=== PATIENT | female | born 1935 | race Caucasian/White ===

== ENCOUNTER 2020-08-29 08:52 | Day surgery (SDC) | payer MEDICARE, BC ==
[~2020-08-29 08:52] MED LIST: Lactated Ringers 1,000 ML IV SCH
[2020-08-29] MEDS ORDERED: Citric Acid/Sodium Citrate Solution 30 ML Cup PO ONE (10:19)
[2020-08-29] MEDS ORDERED: Propofol 200 MG/20 ML SDV ONE (10:26)
[2020-08-29 12:23] VITALS: BP 137/64; PULSE 61
--- NOTE | 2020-08-29 14:03 | OR ---
SURGERY DATE: 08/29/2020. REFERRING PROVIDER: Alissa Fernández MD PRE-OPERATIVE DIAGNOSES: 1. History of Coates's esophagitis. 2. Gastroesophageal reflux disease and sore throat. 3. Intermittent mild dysphagia at upper esophagus level. POST-OPERATIVE DIAGNOSES: 1. Numerous gastric polyps noted in the fundus, body, and cardia of the stomach. These range in size from 0.5 cm to 2.5 cm. However, none of these stand out or look overly worrisome. We had previously taken out larger polyp or 2 back in 2016 and appearance of the stomach is mostly unchanged. 2. Normal appearing esophagus and gastroesophageal junction without any evidence for Coates's esophagus. 3. Normal-appearing antrum. Cold biopsy x2 bites taken to check for Helicobacter pylori and path. 4. Small Zenker's diverticulum noted at the proximal esophagus, which is probably contributing to her dysphagia. The patient states that neck flexion does help when swallowing. PROCEDURE: Esophagogastroduodenoscopy with cold biopsy x1 site using cold forceps (antrum for H pylori and path). SURGEON: Mathew Ybarra M.D. ANESTHESIA: Monitored anesthesia care. Zaira is an 85-year-old female who was brought to the endoscope suite after discussion of risks and benefits (including but not limited to reaction to medication, bleeding, infection, aspiration, perforation). Informed consent was obtained for monitored anesthesia care and esophagogastroduodenoscopy along with possible biopsy and/or dilatation. Pre-procedure exam including oral cavity was unremarkable. IV, oxygen, and monitors were placed. Patient was placed in the left lateral position and sedation was administered. A bite block was placed gently and scope lightly lubricated and passed through the bite block and over the tongue. Hypopharynx and vocal cords were visualized and unremarkable. Scope was passed through the cricopharynx and into the esophagus. The scope was then passed through the distal esophagus and the GE junction was visualized and photographed. The GE junction was unremarkable. There was no evidence for any Coates's esophagus, strictures, rings, inflammation. Vocal cords were visualized and unremarkable. The scope was advanced into the stomach and gastric valencia was suctioned. Pylorus was identified and intubated and then the scope was advanced to the third portion of the duodenum. The second and third portions of the duodenum were unremarkable. The duodenal bulb was visualized and unremarkable. The scope was brought back into the stomach. The pylorus and the antrum were unremarkable. Cold biopsy x2 bites taken for path and H pylori. The scope was then retroflexed to visualize the angularis, fundus, body, and cardia. These were remarkable for numerous benign-appearing gastric polyps. Polyps were too numerous in number to count. They did range in size from 0.5 cm up to several that are probably 2.5 cm in size. These appeared to be benign fundic type polyps. The stomach was desufflated of air and then the scope was slowly withdrawn, and the esophagus was closely visualized during withdrawal all the way into the posterior pharynx. At the proximal esophagus, there was noted to be what looked like a small Zenker's diverticulum present. No inflammation or food contents noted within it. This was fairly shallow in nature and likely would not require any further intervention at this time. The patient tolerated the procedure well and went to recovery in stable condition. The patient was monitored until at baseline status. Findings and discharge instructions were reviewed and the patient was discharged in good condition. COMPLICATIONS: None. TOTAL TIME: 10 minutes. ESTIMATED BLOOD LOSS: Less than 1 mL. RECOMMENDATIONS/FOLLOW-UP: We will have the patient continue on her Nexium 40 mg daily for control of her reflux symptoms. I do not think she requires any further monitoring for Coates's esophagus in the future being this seems to be resolved. The stomach polyps appear mostly unchanged from 2016 and are too numerous to count. I also do not think it is feasible to remove all the ones that are greater than 1 cm in size, especially in this 85-year-old female. I would probably only repeat an EGD if she is having any symptoms of upper GI bleeding or dyspepsia or worsening reflux symptoms. With regard to her small Zenker's diverticulum, this is partially contributing to her dysphagia with certain pills. It sounds like she can modify her swallowing with neck flexion and this seems to help. The Zenker's diverticulum was small and shallow in nature. I do not foresee it being a huge issue that would require intervention. I would like to kindly thank Dr. Fernández for this referral. We will await antral biopsies and send out letter with results to ensure that H pylori is not present and contributing to gastric polyp formation. DMB: 08/29/2020 12:10:28 MODL: 08/29/2020 13:25:08 /[id number]
== END 2020-08-29 12:55 | disposition home or self-care (01) ==
LOC: VM.SDS 08:52
PROVIDERS: ATTEND Family Medicine
DX: K31.7 Polyp of stomach and duodenum (principal); K22.5 Diverticulum of esophagus, acquired; Z01.812 Encounter for preprocedural laboratory examination; Z20.828 Contact with and (suspected) exposure to other viral communicable diseases; I10 Essential (primary) hypertension; E03.4 Atrophy of thyroid (acquired); K21.9 Gastro-esophageal reflux disease without esophagitis; E78.00 Pure hypercholesterolemia, unspecified; F41.9 Anxiety disorder, unspecified; K22.70 Barrett's esophagus without dysplasia; I44.7 Left bundle-branch block, unspecified; F51.01 Primary insomnia; R73.9 Hyperglycemia, unspecified; I34.0 Nonrheumatic mitral (valve) insufficiency; R49.0 Dysphonia; M13.88 Other specified arthritis, other site; K59.09 Other constipation; K58.2 Mixed irritable bowel syndrome; R26.81 Unsteadiness on feet; J30.9 Allergic rhinitis, unspecified; M81.0 Age-related osteoporosis without current pathological fracture; Z79.899 Other long term (current) drug therapy; Z88.1 Allergy status to other antibiotic agents; Z88.2 Allergy status to sulfonamides; Z88.8 Allergy status to other drugs, medicaments and biological substances
CPT/HCPCS: 00731; 88305; A9270-GY; J2704; J7120; U0002

== ENCOUNTER 2022-01-24 13:10 | Emergency (ER) | payer MEDICARE, BC ==
[2022-01-24] MEDS ORDERED: Ketorolac 30 MG/ML SDV ONE (13:50)
== END 2022-01-25 14:12 ==
LOC: VM.ED 13:10
DX: G89.29 Other chronic pain (principal); M54.50 Low back pain, unspecified
CPT/HCPCS: 99283; J1885; 96372

== ENCOUNTER 2022-06-25 22:54 | Inpatient (IN) | payer MEDICARE, BC ==
[2022-06-25] MEDS ORDERED: Sodium Chloride 0.9% 10 ML Syringe FLUSH PRN (23:08)
[2022-06-25 23:37] LABS: PTT,PARTIAL THROMBOPLSTIN TIME 23.1 SEC (20.5-30.9)
[2022-06-25 23:44] LABS: CHLORIDE,CL 100 mmol/L (98-107); SODIUM,NA 136 mmol/L (136-145)
[2022-06-25 23:54] LABS: ANION GAP 11.2 mmol/L (5-15); ESTIMATED GFR 49 mL/min (>=60)
[2022-06-26] MEDS ORDERED: Iopamidol 755 Mg/ML 100 ML Bottle IVPUSH ONE (00:04)
[2022-06-26] MEDS ORDERED: Clopidogrel 75 MG Tab PO ONE (01:50)
[2022-06-26] MEDS ORDERED: Aspirin 81 MG Tab.Chew PO ONE (01:50)
[2022-06-26] MEDS ORDERED: Ondansetron 4 MG Tab.DIS PO PRN (08:23)
[2022-06-26] MEDS ORDERED: Acetaminophen 325 MG Tab PO PRN (08:23)
[2022-06-26] MEDS ORDERED: Zolpidem 5 MG Tab PO PRN (08:27)
[2022-06-26] MEDS ORDERED: Acetaminophen 500 MG Tab PO PRN (08:27)
[2022-06-26] MEDS ORDERED: traMADol 50 MG Tab PO PRN (08:27)
[2022-06-26] MEDS ORDERED: Clobetasol 0.05% Crm 30 GM Tube TOP PRN (08:27)
[2022-06-26] MEDS ORDERED: Cyclobenzaprine 10 MG Tab PO PRN (08:27)
[2022-06-26] MEDS ORDERED: Metoclopramide 10 MG Tab PO PRN (08:27)
[2022-06-26] MEDS ORDERED: Ibuprofen 200 MG Tab PO PRN (09:35)
[2022-06-26] MEDS ORDERED: Ketotifen 0.025% Ophth Soln 5 ML Bottle EYEBOTH PRN (09:39)
[2022-06-26] MEDS: Enoxaparin 30 MG/0.3 ML Syringe SUBCUT SCH (09:57)
[2022-06-26] MEDS: Lactobacillus Rhamnosus GG (Probiotic) Cap PO SCH (09:57)
[2022-06-26] MEDS: Hydrochlorothiazide 12.5 MG Cap PO SCH (09:57)
[2022-06-26] MEDS: Famotidine 20 MG Tab PO SCH (09:58)
[2022-06-26] MEDS: Atenolol 50 MG Tab PO SCH (09:58)
[2022-06-26] MEDS: Lisinopril 20 MG Tab PO SCH (09:58)
[2022-06-26] MEDS: Levothyroxine 100 MCG Tab PO SCH (09:58)
[2022-06-26] MEDS: Gabapentin 400 MG Cap PO SCH (09:58)
[2022-06-26] MEDS: Calcium Carbonate/Vitamin D3 1250 MG-5 MCG Tab PO SCH ×2 (09:59→18:21)
[2022-06-26] MEDS: Lidocaine 4% 1 each Patch TOP SCH (10:03)
[2022-06-26] MEDS: LOTEPREDNOL EYEBOTH SCH (12:29)
[2022-06-26] MEDS ORDERED: Potassium Chloride 10 MEQ Tab.ER PO ONE (13:00)
[2022-06-26] MEDS: atorvaSTATin 40 MG Tab PO SCH (14:05)
[2022-06-26] MEDS: Aspirin 325 MG Tab.EC PO SCH (14:06)
[2022-06-26] MEDS: Cholecalciferol (Vitamin D3) 25 MCG Tab PO SCH (14:06)
[2022-06-26] MEDS: Fenofibrate,Micronized 134 MG Cap PO SCH (14:06)
[2022-06-26] MEDS: Sodium Chloride/Potassium Chloride Tab PO SCH ×2 (14:06→20:44)
[2022-06-26] MEDS: Beta-Carotene (Vitamin A) w/Vitamin C & E plus Minerals Tab PO SCH ×2 (15:32→20:44)
[2022-06-26] MEDS: Docusate Sodium 100 MG Cap PO PRN (20:48)
[2022-06-26] MEDS ORDERED: Clopidogrel 75 MG Tab PO SCH (21:00)
[2022-06-27] MEDS: Levothyroxine 100 MCG Tab PO SCH (06:04)
[2022-06-27 08:15] VITALS: BP 165/68; PULSE 70
[2022-06-27] MEDS: Fenofibrate,Micronized 134 MG Cap PO SCH (08:20)
[2022-06-27] MEDS: Lactobacillus Rhamnosus GG (Probiotic) Cap PO SCH (08:20)
[2022-06-27] MEDS: Hydrochlorothiazide 12.5 MG Cap PO SCH (08:21)
[2022-06-27] MEDS: Sodium Chloride/Potassium Chloride Tab PO SCH (08:21)
[2022-06-27] MEDS: atorvaSTATin 40 MG Tab PO SCH (08:22)
[2022-06-27] MEDS: Beta-Carotene (Vitamin A) w/Vitamin C & E plus Minerals Tab PO SCH (08:22)
[2022-06-27] MEDS: Famotidine 20 MG Tab PO SCH (08:22)
[2022-06-27] MEDS: Atenolol 50 MG Tab PO SCH (08:22)
[2022-06-27] MEDS: Aspirin 325 MG Tab.EC PO SCH (08:23)
[2022-06-27] MEDS: Calcium Carbonate/Vitamin D3 1250 MG-5 MCG Tab PO SCH (08:23)
[2022-06-27] MEDS: Cholecalciferol (Vitamin D3) 25 MCG Tab PO SCH (08:23)
[2022-06-27] MEDS: Enoxaparin 30 MG/0.3 ML Syringe SUBCUT SCH (08:23)
[2022-06-27] MEDS: Gabapentin 400 MG Cap PO SCH (08:23)
[2022-06-27] MEDS: Lisinopril 20 MG Tab PO SCH (08:23)
[2022-06-27] MEDS: Lidocaine 4% 1 each Patch TOP SCH (08:24)
[2022-06-27] MEDS: Docusate Sodium 100 MG Cap PO PRN (08:28)
[2022-06-27] MEDS: LOTEPREDNOL EYEBOTH SCH (11:02)
== END 2022-06-27 10:30 | disposition home or self-care (01) | DRG 69 ==
LOC: VM.ED 22:54 → VM.MS 06-26 02:19 → UNDOADMIN 06-26 03:15 → VM.MS 06-26 03:15 → UNDODISIN 06-27 10:30
PROVIDERS: ADMIT Nurse Practitioner Family; ATTEND Nurse Practitioner Family
DX: G45.9 Transient cerebral ischemic attack, unspecified (principal); W19.XXXA Unspecified fall, initial encounter; E78.00 Pure hypercholesterolemia, unspecified; E87.1 Hypo-osmolality and hyponatremia; I10 Essential (primary) hypertension; I44.7 Left bundle-branch block, unspecified; M19.90 Unspecified osteoarthritis, unspecified site; M81.0 Age-related osteoporosis without current pathological fracture; E03.9 Hypothyroidism, unspecified; F41.9 Anxiety disorder, unspecified; Z88.1 Allergy status to other antibiotic agents; D64.9 Anemia, unspecified; E78.5 Hyperlipidemia, unspecified; Z79.82 Long term (current) use of aspirin; R29.700 NIHSS score 0; Z66 Do not resuscitate; G89.29 Other chronic pain; G47.00 Insomnia, unspecified; Z96.611 Presence of right artificial shoulder joint; R01.1 Cardiac murmur, unspecified; K21.9 Gastro-esophageal reflux disease without esophagitis; K59.09 Other constipation; Z86.79 Personal history of other diseases of the circulatory system; Z86.010 Personal history of colon polyps; Z98.42 Cataract extraction status, left eye; Z98.41 Cataract extraction status, right eye; Z79.890 Hormone replacement therapy; Z98.890 Other specified postprocedural states; Z90.89 Acquired absence of other organs; Z90.710 Acquired absence of both cervix and uterus; Z79.899 Other long term (current) drug therapy; Z79.1 Long term (current) use of non-steroidal anti-inflammatories (NSAID); Z79.52 Long term (current) use of systemic steroids; Z88.8 Allergy status to other drugs, medicaments and biological substances; Z88.3 Allergy status to other anti-infective agents; Z88.5 Allergy status to narcotic agent; Z88.2 Allergy status to sulfonamides; W18.30XA Fall on same level, unspecified, initial encounter; Y92.009 Unspecified place in unspecified non-institutional (private) residence as the place of occurrence of the external cause
CPT/HCPCS: 70450; 70496; 80053; 82550; 82947; 83735; 84100; 84484; 85025; 85610; 85730; 86140; 92610-GN; 93005; 93010; 97161-GP; 99285; A9270-GY; J1650; J3490; Q9967